=== PATIENT | male | born 1975 | race African-American/Black ===

== ENCOUNTER 2020-02-11 16:09 | Emergency (ER) | payer MEDICAID ==
[~2020-02-11] VITALS: Ht 190.5 cm; Wt 90.0 kg
[2020-02-11 16:14] VITALS: BP 137/88
[2020-02-11] MEDS ORDERED: HYDROcodone/acetaminophen 5mg/325mg tablet PO ONE (16:55)
[2020-02-11] MEDS ORDERED: AMOX-117 PO (16:59)
[2020-02-11] MEDS ORDERED: IBUP-1984 PO (17:17)
== END 2020-02-11 17:33 | disposition home or self-care (01) ==
LOC: ER 16:10
DX: K04.7 Periapical abscess without sinus (principal); K03.81 Cracked tooth; K02.9 Dental caries, unspecified; Z59.0 Homelessness; Z79.2 Long term (current) use of antibiotics; Z79.899 Other long term (current) drug therapy
CPT/HCPCS: 99283